=== PATIENT | female | born 1960 | race Caucasian/White ===

== ENCOUNTER 2022-03-28 08:42 | Day surgery (SDC) | payer OTHER ==
[~2022-03-28] VITALS: Ht 152.4 cm; Wt 51.7 kg
[~2022-03-28 08:42] MED LIST: ALEN70 PO; FAMO40 PO; FOLI1 PO; HYDSUL200 PO; Prednisone10 MG PO; Trexall15 MG PO; XELJANZ XR11 MG PO
--- NOTE | 2022-03-28 09:13 | NUR ---
03/28/22 0913 Gemini Henson TETRACAINE TO LEFT EYE [place] [address] [place] [address] [facility]AG
== END 2022-03-28 10:28 | disposition home or self-care (01) ==
LOC: ORSCSDS 08:42
PROVIDERS: Ophthalmology
PROC: 08DK3ZZ Extraction of Left Lens, Percutaneous Approach (ICD-10-PCS; principal; 2022-03-28 10:00)
DX: H25.12 Age-related nuclear cataract, left eye (principal); K21.9 Gastro-esophageal reflux disease without esophagitis; M06.9 Rheumatoid arthritis, unspecified; Z87.891 Personal history of nicotine dependence; Z79.899 Other long term (current) drug therapy
CPT/HCPCS: J2001; J2250; J3010; J3301; J7040; V2632

== ENCOUNTER → 2023-01-21 | Outpatient (CLI) | payer OTHER | LOC: LAB SHORT 17:54 → LAB 17:54 | DX: J06.9 Acute upper respiratory infection, unspecified (principal) | CPT/HCPCS: 87081 ==